=== PATIENT | female | born 2000 | race American Indian/Alaskan Native ===

== ENCOUNTER 2021-08-02 10:50 | Emergency (ER) | payer SELFPAY | END 2021-08-02 13:00 | disposition left against medical advice (07) | LOC: ED 10:50 | DX: L02.416 Cutaneous abscess of left lower limb (principal); Z53.21 Procedure and treatment not carried out due to patient leaving prior to being seen by health care provider ==

== ENCOUNTER 2021-08-03 04:43 | Emergency (ER) | payer MEDICARE ==
[2021-08-03] MEDS ORDERED: MORPHINE 4 MG/1 ML INJ IV ONE (06:15)
[2021-08-03] MEDS ORDERED: ONDANSETRON 4 MG/2 ML INJ IV ONE (06:15)
[2021-08-03] MEDS ORDERED: KETOROLAC 30 MG/1 ML INJ IV ONE (06:15)
[2021-08-03] MEDS ORDERED: SODIUM CHLORIDE 0.9% 1000 ML IV SOLN IV ONE (06:16)
--- NOTE | 2021-08-03 06:34 | Emergency Department Report ---
- General Chief complaint: Skin/Abscess/Foreign Body Stated complaint: VAGINAL/ANAL CYST Time Seen by Provider: 08/03/21 06:11 Source: patient Mode of arrival: Wheelchair Limitations: No Limitations - History of Present Illness Initial comments: 20-year-old female with a past medical history of hidradenitis superlative presents to the hospital with pain and swelling to left Labial area extending to left inner thigh. Symptoms progressively worsening for the past 2 to 3 days. Pain is 10/10 intensity, constant, worsened with palpation and movement. Patient denies documented fever but states she is having chills. History of surgery in 2019 for hidradenitis superlative in the vaginal area. Since then patient has intermittent periods of inflammation and opening of the sores - Related Data Previous Rx's Medication Instructions Recorded Last Taken Type Doxycycline Monohydrate 100 mg PO BID #20 cap 08/03/21 Unknown Rx [Doxycycline Monohydrate CAP] Ibuprofen [Motrin] 800 mg PO Q8HR PRN #20 tablet 08/03/21 Unknown Rx cephALEXin [Keflex] 500 mg PO Q12HR #20 cap 08/03/21 Unknown Rx metroNIDAZOLE [Flagyl] 500 mg PO Q12HR #20 tab 08/03/21 Unknown Rx oxyCODONE /ACETAMINOPHEN [Percocet 1 tab PO Q6HR PRN #15 tablet 08/03/21 Unknown Rx 5/325] Allergies Allergy/AdvReac Type Severity Reaction Status Date / Time No Known Allergies Allergy Verified 08/03/21 04:55 Abscess Boil HPI - HPI Chief Complaint: Skin/Abscess/Foreign Body Stated Complaint: VAGINAL/ANAL CYST Time Seen by Provider: 08/03/21 06:11 Home Medications: Previous Rx's Medication Instructions Recorded Last Taken Type Doxycycline Monohydrate 100 mg PO BID #20 cap 08/03/21 Unknown Rx [Doxycycline Monohydrate CAP] Ibuprofen [Motrin] 800 mg PO Q8HR PRN #20 tablet 08/03/21 Unknown Rx cephALEXin [Keflex] 500 mg PO Q12HR #20 cap 08/03/21 Unknown Rx metroNIDAZOLE [Flagyl] 500 mg PO Q12HR #20 tab 08/03/21 Unknown Rx oxyCODONE /ACETAMINOPHEN [Percocet 1 tab PO Q6HR PRN #15 tablet 08/03/21 Unknown Rx 5/325] Allergies/Adverse Reactions: Allergies Allergy/AdvReac Type Severity Reaction Status Date / Time No Known Allergies Allergy Verified 08/03/21 04:55 ED Review of Systems ROS: Stated complaint: VAGINAL/ANAL CYST Other details as noted in HPI Comment: All other systems reviewed and negative ED Past Medical Hx - Past Medical History Previous Medical History?: Yes Additional medical history: hidranetis Suppurativa - Surgical History Past Surgical History?: Yes Additional Surgical History: Leg Surgery Right and Left and Buttocks - Social History Smoking Status: Never Smoker Substance Use Type: None - Medications Home Medications: Home Medications Medication Instructions Recorded Confirmed Last Taken Type Doxycycline Monohydrate 100 mg PO BID #20 cap 08/03/21 Unknown Rx [Doxycycline Monohydrate CAP] Ibuprofen [Motrin] 800 mg PO Q8HR PRN #20 tablet 08/03/21 Unknown Rx cephALEXin [Keflex] 500 mg PO Q12HR #20 cap 08/03/21 Unknown Rx metroNIDAZOLE [Flagyl] 500 mg PO Q12HR #20 tab 08/03/21 Unknown Rx oxyCODONE /ACETAMINOPHEN [Percocet 1 tab PO Q6HR PRN #15 tablet 08/03/21 Unknown Rx 5/325] ED Physical Exam - General Limitations: No Limitations - Other Other exam information: General: Distressed secondary to pain Head: Atraumatic Eyes: normal appearance ENT: Moist mucous membranes Neck: Normal appearance, no midline tenderness Chest: Clear to auscultation bilaterally CV: Tachycardic regular rhythm Abdomen: Soft, normal bowel sounds, nontender, nondistended, no rebound or guarding Back: Normal inspection Extremity: Normal inspection, full range of motion Neuro: Alert O x 3, no facial asymmetry, speech clear, no gross motor sensory deficit Psych: Appropriate behavior Skin: area patient has surgical wounds from the bilateral inner thighs from previous surgery with some scar tissue and areas of open and healed wounds. At the left.. Labial area extending to the gluteal area patient has significant tenderness with some firmness/fluctuance. ED Course Vital Signs 08/03/21 08/03/21 08/03/21 04:48 06:18 10:04 Temperature 98.2 F Pulse Rate 142 H 60 Respiratory 24 16 Rate Blood Pressure 128/108 100/62 [Left] O2 Sat by Pulse 100 100 Oximetry - Consultations Consultation #1: 08/03/21 10:15 Case discussed with on-call AUTOMATIC BOW MAKER MACHINE TENDER Dr. Desai. Recommends Keflex, doxycycline, Flagyl and warm compresses. follow-up in the office in 48 hours for re- assessment for possible I&D ED Medical Decision Making - Lab Data Result diagrams: 08/03/21 06:36 08/03/21 06:36 Lab Results 08/03/21 08/03/21 08/03/21 Range/Units 06:36 06:36 06:36 WBC 5.6 (4.5-11.0) K/mm3 RBC 3.47 L (3.65-5.03) M/mm3 Hgb 11.0 (10.1-14.3) gm/dl Hct 31.9 (30.3-42.9) % MCV 92 (79-97) fl MCH 32 (28-32) pg MCHC 35 H (30-34) % RDW 13.5 (13.2-15.2) % Plt Count 129 L (140-440) K/mm3 Lymph % (Auto) 13.0 L (13.4-35.0) % [place] % (Auto) 8.1 H (0.0-7.3) % Eos % (Auto) 0.1 (0.0-4.3) % Baso % (Auto) 0.3 (0.0-1.8) % Lymph # (Auto) 0.7 L (1.2-5.4) K/mm3 [place] # (Auto) 0.5 (0.0-0.8) K/mm3 Eos # (Auto) 0.0 (0.0-0.4) K/mm3 Baso # (Auto) 0.0 (0.0-0.1) K/mm3 Seg Neutrophils % 78.5 H (40.0-70.0) % Seg Neutrophils # 4.4 (1.8-7.7) K/mm3 Sodium 134 L (137-145) mmol/L Potassium 3.7 (3.6-5.0) mmol/L Chloride 103.1 (98-107) mmol/L Carbon Dioxide 23 (22-30) mmol/L Anion Gap 12 mmol/L BUN 14 (7-17) mg/dL Creatinine 0.6 (0.6-1.2) mg/dL Estimated GFR > 60 ml/min BUN/Creatinine Ratio 23 % Glucose 92 (65-100) mg/dL Lactic Acid 0.60 L (0.7-2.0) mmol/L Calcium 8.7 (8.4-10.2) mg/dL Total Bilirubin 0.30 (0.1-1.2) mg/dL AST 13 (5-40) units/L ALT 10 (7-56) units/L Alkaline Phosphatase 62 (35-129) units/L Total Protein 7.9 (6.3-8.2) g/dL Albumin 3.9 (3.9-5) g/dL Albumin/Globulin Ratio 1.0 % HCG, Qual (Negative) 08/03/21 08/03/21 Range/Units 06:59 08:55 WBC (4.5-11.0) K/mm3 RBC (3.65-5.03) M/mm3 Hgb (10.1-14.3) gm/dl Hct (30.3-42.9) % MCV (79-97) fl MCH (28-32) pg MCHC (30-34) % RDW (13.2-15.2) % Plt Count (140-440) K/mm3 Lymph % (Auto) (13.4-35.0) % [place] % (Auto) (0.0-7.3) % Eos % (Auto) (0.0-4.3) % Baso % (Auto) (0.0-1.8) % Lymph # (Auto) (1.2-5.4) K/mm3 [place] # (Auto) (0.0-0.8) K/mm3 Eos # (Auto) (0.0-0.4) K/mm3 Baso # (Auto) (0.0-0.1) K/mm3 Seg Neutrophils % (40.0-70.0) % Seg Neutrophils # (1.8-7.7) K/mm3 Sodium (137-145) mmol/L Potassium (3.6-5.0) mmol/L Chloride (98-107) mmol/L Carbon Dioxide (22-30) mmol/L Anion Gap mmol/L BUN (7-17) mg/dL Creatinine (0.6-1.2) mg/dL Estimated GFR ml/min BUN/Creatinine Ratio % Glucose (65-100) mg/dL Lactic Acid 0.50 L (0.7-2.0) mmol/L Calcium (8.4-10.2) mg/dL Total Bilirubin (0.1-1.2) mg/dL AST (5-40) units/L ALT (7-56) units/L Alkaline Phosphatase (35-129) units/L Total Protein (6.3-8.2) g/dL Albumin (3.9-5) g/dL Albumin/Globulin Ratio % HCG, Qual Negative (Negative) - Radiology Data Radiology results: report reviewed CT ABDOMEN AND PELVIS WITH CONTRAST HISTORY: left thight labia abscess/infection COMPARISON: None. TECHNIQUE: Axial CT images were obtained through the abdomen and pelvis after 100 cc of Omnipaque 300 IV contrast. Sagittal and coronal reformatted images. All CT scans at this location are performed using CT dose reduction for ALARA by means of automated exposure control. FINDINGS: CT ABDOMEN: Lung Bases: Clear. Liver: No significant abnormality. Biliary: No significant abnormality. Spleen: No significant abnormality. Unenlarged. Pancreas: No significant abnormality. Adrenals: No significant abnormality. Kidneys: No significant abnormality. Lymphatics: No lymphadenopathy. Vasculature: No significant abnormality. Bowel/Peritoneum: No significant abnormality. No free air. No free fluid. CT PELVIS: : There is a 1.8 cm left ovarian cyst and small pelvic ascites. The uterus, right ovary and bladder are unremarkable. There is subcutaneous induration and edema in the left labia majora. A small fluid collection within the left labia measures 3.7 x 2.1 cm consistent with early abscess. No internal gas. Osseous Structures: No significant abnormality. Additional Findings: None IMPRESSION: Left labia cellulitis with early abscess formation measuring 3.7 x 2.1 cm. 1.8 cm left ovarian cyst and small pelvic ascites. - Medical Decision Making 20-year-old female with a history of hidradenitis superlative presents to the hospital complaining of severe left labia pain extending to inner thigh. CT confirms cellulitis with early abscess. No signs of sepsis or septic shock at this time. Case discussed with electronic sales and service technician cognos administrator. Patient received 1 dose of IV clindamycin here and will be discharged on Keflex, Doxy, and Flagyl with 48-hour follow-up with AUTOMATIC BOW MAKER MACHINE TENDER recommended. 48 hours falls on a Saturday. Patient encouraged to follow-up on Saturday unless symptoms worsen. Pain improved with ED treatment Critical Care Time: No Critical care attestation.: If time is entered above; I have spent that time in minutes in the direct care of this critically ill patient, excluding procedure time. ED Disposition Clinical Impression: Cellulitis of labia, Left genital labial abscess, Hidradenitis suppurativa Disposition: HOME / SELF CARE / HOMELESS Is pt being admited?: No Does the pt Need Aspirin: No Condition: Stable Instructions: Skin Abscess, [id number], Cellulitis, Adult, [id number] Additional Instructions: Take the medication as prescribed. Follow-up with AUTOMATIC BOW MAKER MACHINE TENDER in 2 days for repeat evaluation and possible drainage of your developing abscess (call the AUTOMATIC BOW MAKER MACHINE TENDER office today to see if you require an appointment in 2 days or may walk-in). If they do not have open clinic on Saturday continue to take your antibiotics and fol low-up on Saturday. If symptoms worsen prior to Saturday please not hesitate to come to the ER for reevaluation and treatment. Apply warm compresses to the area to encourage drainage. Prescriptions: Doxycycline Monohydrate [Doxycycline Monohydrate CAP] 100 mg PO BID #20 cap metroNIDAZOLE [Flagyl] 500 mg PO Q12HR #20 tab cephALEXin [Keflex] 500 mg PO Q12HR #20 cap Ibuprofen [Motrin] 800 mg PO Q8HR PRN #20 tablet PRN Reason: Pain , Severe (7-10) oxyCODONE /ACETAMINOPHEN [Percocet 5/325] 1 tab PO Q6HR PRN #15 tablet PRN Reason: Pain Referrals: ZEE DESAI MD [Staff Physician] - 08/07/21 Time of Disposition: 11:13
[2021-08-03 06:51] LABS: Basophils % (Auto) 0.3 % (0.0-1.8); Eosinophils % (Auto) 0.1 % (0.0-4.3); Hematocrit 31.9 % (30.3-42.9); Lymphocytes # (Auto) 0.7 K/mm3 (1.2-5.4); Mean Corpuscular HGB Conc 35 % (30-34); Mean Corpuscular Volume 92 fl (79-97); Monocytes # (Auto) 0.5 K/mm3 (0.0-0.8); Monocytes % (Auto) 8.1 % (0.0-7.3); Platelet Count 129 K/mm3 (140-440); Red Blood Count 3.47 M/mm3 (3.65-5.03); Red Cell Distribution Width 13.5 % (13.2-15.2)
[2021-08-03 07:13] LABS: Alanine Aminotransferase 10 units/L (7-56); Albumin 3.9 g/dL (3.9-5); Blood Urea Nitrogen 14 mg/dL (7-17); Calcium 8.7 mg/dL (8.4-10.2); Hemolysis Index 3
[2021-08-03 07:23] LABS: BUN/Creatinine Ratio 23
--- NOTE | 2021-08-03 09:03 | Cat Scan Report ---
CT ABDOMEN AND PELVIS WITH CONTRAST HISTORY: left thight labia abscess/infection COMPARISON: None. TECHNIQUE: Axial CT images were obtained through the abdomen and pelvis after 100 cc of Omnipaque 300 IV contrast. Sagittal and coronal reformatted images. All CT scans at this location are performed us ing CT dose reduction for GENERA by means of automated exposure control. FINDINGS: CT ABDOMEN: Lung Bases: Clear. Liver: No significant abnormality. Biliary: No significant abnormality. Spleen: No significant abnormality. Unenlarged. Pancreas: No significant abnormality. Adrenals: No significant abnormality. Kidneys: No significant abnormality. Lymphatics: No lymphadenopathy. Vasculature: No significant abnormality. Bowel/Peritoneum: No significant abnormality. No free air. No free fluid. CT PELVIS: : There is a 1.8 cm left ovarian cyst and small pelvic ascites. The uterus, right ovary and bladder are unremarkable. There is subcutaneous induration and edema in the left labia majora. A small fluid collection within the left labia measures 3.7 x 2.1 cm consistent with early abscess. No internal ga s. Osseous Structures: No significant abnormality. Additional Findings: None IMPRESSION: Left labia cellulitis with early abscess formation measuring 3.7 x 2.1 cm. 1.8 cm left ovarian cyst and small pelvic ascites. Signer Name: Sylvester Mcnamara Jr, MD Signed: 08/03/2021 8:59 AM Workstation Name: [id number]
[2021-08-03] MEDS ORDERED: HYDROmorphone 1 MG/1 ML INJ IV ONE (09:43)
[2021-08-03 11:37] VITALS: BP 102/62
== END 2021-08-03 12:19 | disposition home or self-care (01) ==
LOC: ED 04:43
DX: N76.4 Abscess of vulva (principal); L73.2 Hidradenitis suppurativa
CPT/HCPCS: 36415; 74177; 80053; 82140; 84703; 85025; 87040; 96365; 96375; 99284; J1885; J2270; J2405; J7030; J7502; Q9967

== ENCOUNTER 2021-09-14 11:47 | Emergency (ER) | payer MEDICARE ==
[2021-09-14 12:46] VITALS: BP 113/52
[2021-09-14] MEDS ORDERED: HYDROcodone/ACETAMINOPHEN 5-325 MG TAB PO ONE (17:34)
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
== END 2021-09-14 18:35 | disposition home or self-care (01) ==
LOC: ED 11:47
DX: M79.10 Myalgia, unspecified site (principal); J45.909 Unspecified asthma, uncomplicated; V89.2XXA Person injured in unspecified motor-vehicle accident, traffic, initial encounter; Y93.89 Activity, other specified; Y92.89 Other specified places as the place of occurrence of the external cause; Y99.8 Other external cause status
CPT/HCPCS: 99282